=== PATIENT | female | born 1940 | race American Indian/Alaskan Native ===

== ENCOUNTER 2018-03-22 07:04 | Day surgery (SDC) | payer MEDICARE, BC ==
[2018-03-13 11:43] VITALS: BMI 28.3
[2018-03-22] MEDS ORDERED: Sodium Chloride 0.9% 1,000 ML IV SCH (08:30)
[2018-03-22] MEDS ORDERED: Propofol 10 mg/ml Inj (20 ML) ONE (08:48)
[2018-03-22 10:05] VITALS: O2SAT 99
[2018-03-22 10:29] VITALS: PULSE 68
[2018-03-22 11:21] VITALS: BP 111/60; RESP 18; TEMP 98.1
== END 2018-03-22 11:55 | disposition home or self-care (01) ==
LOC: ENDO 07:04
PROVIDERS: ATTEND Specialist
DX: K21.9 Gastro-esophageal reflux disease without esophagitis (principal); K29.50 Unspecified chronic gastritis without bleeding; K44.9 Diaphragmatic hernia without obstruction or gangrene; K31.84 Gastroparesis; T18.2XXA Foreign body in stomach, initial encounter; E03.9 Hypothyroidism, unspecified; M19.90 Unspecified osteoarthritis, unspecified site; H26.9 Unspecified cataract; F41.9 Anxiety disorder, unspecified; Z87.442 Personal history of urinary calculi; Z96.659 Presence of unspecified artificial knee joint; Z88.1 Allergy status to other antibiotic agents; Z88.2 Allergy status to sulfonamides
CPT/HCPCS: 43239; 88305; 88342; J2704; J7030; J7040

== ENCOUNTER 2019-02-21 06:03 | Day surgery (SDC) | payer MEDICARE ==
[2019-02-16 15:54] VITALS: BMI 30.1
[2019-02-21] MEDS ORDERED: Propofol 10 mg/ml Inj (20 ML) ONE (08:06)
[2019-02-21] MEDS ORDERED: ePHEDrine 50 mg/ml Inj ONE (08:21)
[2019-02-21] MEDS ORDERED: Sodium Chloride 0.9% 1,000 ML IV SCH (08:45)
[2019-02-21 09:07] VITALS: O2SAT 98
[2019-02-21 09:35] VITALS: BP 141/83; PULSE 72; RESP 16; TEMP 97.5
== END 2019-02-21 10:23 | disposition home or self-care (01) ==
LOC: ENDO 06:03
PROVIDERS: ATTEND Specialist
DX: Z12.11 Encounter for screening for malignant neoplasm of colon (principal); K57.30 Diverticulosis of large intestine without perforation or abscess without bleeding; K64.8 Other hemorrhoids; E03.9 Hypothyroidism, unspecified; Z86.010 Personal history of colon polyps; M19.90 Unspecified osteoarthritis, unspecified site; K21.9 Gastro-esophageal reflux disease without esophagitis; Z87.442 Personal history of urinary calculi; H26.9 Unspecified cataract; Z96.653 Presence of artificial knee joint, bilateral; Z88.2 Allergy status to sulfonamides; Z88.1 Allergy status to other antibiotic agents; Z88.3 Allergy status to other anti-infective agents; Z91.040 Latex allergy status
CPT/HCPCS: 45378; J2001; J2704; J7030